=== PATIENT | female | born 2000 | race Caucasian/White ===

== ENCOUNTER 2022-03-17 10:27 | Emergency (ER) | payer OTHER, SELFPAY ==
[2022-03-17 10:37] VITALS: BP 123/86; PULSE 90; RESP 18; TEMP 36.2; O2SAT 100
--- NOTE | 2022-03-17 11:04 | ED.URI ---
HPI - URI/Sore Throat General Chief Complaint: Upper Respiratory Infection Stated Complaint: cough,congestion Time Seen by Provider: 03/17/22 10:45 Source: patient Mode of arrival: ambulatory Limitations: no limitations History of Present Illness HPI Narrative: Ms. Grimes is a 21-year-old female patient presenting to the clinic today with complaints of nasal congestion and sore throat since Wednesday. She reports that she has taken 3 at home COVID test since Wednesday and they all were negative. She denies any fever or chills. She reports that she has sore throat and nasal congestion as well and has a nonproductive cough. Feels as though the drainage is going in the back of her throat causing this issue. She denies any difficulty swallowing. No known exposure to anyone with COVID, flu, or strep MD elicited complaint: sore throat and nasal congestion Related Data Home Medications Medication Instructions Recorded Confirmed No Home Medications 03/17/22 03/17/22 Allergies Allergy/AdvReac Type Severity Reaction Status Date / Time amoxicillin Allergy Unknown Verified 07/17/19 12:29 Review of Systems Review of Systems: Pertinent positives per HPI. Patient denies any fever, chills, rash, headache, visual changes, dizziness, shortness of breath, chest pain, palpitations, nausea, vomiting, diarrhea, constipation, abdominal pain, or any urinary issues. PMFSH Comments At the time of my signature, I reviewed and agree with the nursing past medical, surgical, social, and family history. There is no relevant family history pertinent to the patient complaint. Exam Narrative: General: Well-developed, well nourished, in no apparent distress Head: Normocephalic, atraumatic Eyes: Pupils equally round and reactive to light bilaterally, EOM intact, sclera and conjunctive clear, no discharge, lids normal Ears: TMs intact and clear, ear canals clear, no drainage, grossly hearing normal. Nose: Nares patent, clear nasal discharge, moderate inflammation, no sinus tenderness. Mouth: Oral pharynx without lesions or masses, good dentition, MMM. Oropharynx mildly red, postnasal drip Neck: Supple, trachea midline, no enlargement of anterior or posterior cervical nodes, no thyroid masses or goiter palpable. Cardio: Regular rate and rhythm, s1 and s2 normal, no murmur appreciated. Resp: Clear to auscultation bilaterally, no rhonchi, rales, wheezing or rubs Course Course Emergency Course: Portions of this record may have been created with voice recognition software. Level of Care: Express Care Visit Vital Signs Vital signs: Vital Signs Temperature 36.2 C L 03/17/22 10:37 Pulse Rate 90 03/17/22 10:37 Respiratory Rate 18 03/17/22 10:37 Blood Pressure 123/86 03/17/22 10:37 Pulse Oximetry 100 03/17/22 10:37 Temperature 36.2 C L 03/17/22 10:37 Pulse Rate 90 03/17/22 10:37 Respiratory Rate 18 03/17/22 10:37 Blood Pressure 123/86 03/17/22 10:37 Pulse Oximetry 100 03/17/22 10:37 Vital signs reviewed MDM - URI/Sore Throat MDM Narrative Medical decision making narrative: At the time of visit patient is resting comfortably on the exam table. She reports she is having nasal congestion and sore throat. Strep screen was obtained because [facility] criteria was only 2 out of 4. Strep screen was negative in the clinic. We will send for culture. Supportive measures were discussed and I suspect patient has an upper respiratory infection with postnasal drip causing pharyngitis. She voiced understanding of the supportive measures and discharge plans and agrees to treatment plan. Differential Diagnosis Differential diagnosis: Likely upper respiratory infection, sinusitis, viral infection, bronchitis, influenza and pharyngitis Lab Data Labs: Strep Screen Presumptive Negative *(Reference Range: Negative)* Discharge Plan Discharge Clinical Impression:
== END 2022-03-17 11:11 | disposition home or self-care (01) ==
PROVIDERS: Emergency Provider Nurse Practitioner Family; PCP Pediatrics
DX: R09.82 Postnasal drip (principal); J06.9 Acute upper respiratory infection, unspecified; J02.9 Acute pharyngitis, unspecified
CPT/HCPCS: 87081; 87880; 99213; G0463